=== PATIENT | female | born 1970 | race Caucasian/White ===

== ENCOUNTER 2018-08-23 23:57 | Emergency (ER) | payer SELFPAY ==
[~2018-08-23] VITALS: Ht 162.6 cm; Wt 70.5 kg
[~2018-08-23 23:57] MED LIST: QUET100T PO
[2018-08-24 00:22] VITALS: Ht 162.6 cm; Wt 70.5 kg
--- NOTE | 2018-08-24 02:37 | ERD ---
ER Documentation Chief Complaint Chief Complaint bib ra 909, states 1 1/2 months , crying, talking to self HPI This is a 48-year-old female who says that she is 1-1/2 months and she wants us to verify that she is . She says that she is only able to know if she is if she has an ultrasound and the blood and urine test do not show any positive results. She is having no cramps and no vaginal bleeding. The patient is a bit tangential with her story ROS All systems reviewed and are negative except as per history of present illness. Medications Home Meds Reported Medications Quetiapine Fumarate* (Seroquel*) 100 Mg Tablet, 100 MG PO HS, TAB 01/21/14 Allergies Allergies: Coded Allergies: No Known Allergy (Unverified , 01/20/14) PMhx/Soc History of Surgery: No Anesthesia Reaction: No Hx Neurological Disorder: No Hx Respiratory Disorders: No Hx Cardiac Disorders: No Hx Psychiatric Problems: No Hx Miscellaneous Medical Probl: Yes (SCHIZOPHRENIA) Hx Alcohol Use: No Hx Substance Use: No Hx Tobacco Use: No FmHx Family History: No coronary disease Physical Exam Vitals Vital Signs Date Temp Pulse Resp B/P (MAP) Pulse Ox O2 O2 Flow FiO2 Time Delivery Rate 08/24/18 97.9 128 18 171/98 98 00:22 (122) Physical Exam Const: Well-developed, well-nourished Head: Atraumatic, normocephalic Eyes: Normal Conjunctiva, PERRLA, EOMI, normal sclera, no nystagmus ENT: Normal External Ears, Nose and Mouth, moist mucus membranes. Neck: Full range of motion. No meningismus, no lymphadenopathy. Resp: Clear to auscultation bilaterally, no wheezing, rhonchi, rales Cardio: Regular rate and rhythm, no murmurs, S1 S2 present Abd: Soft, non tender x 4, non distended. Normal bowel sounds, no guarding or rebound, no pulsitile abdominal masses or bruits Skin: No petechiae or rashes, no ecchymosis , no maculopapular rash Back: No midline or flank tenderness Ext: No cyanosis, or edema, FROM x 4, normal inspection, neurovascularly intact x 4 Neur: Awake and alert, STR 5/5 x 4, sensation intact x 4, no focal findings, cerebellum intact Psych: Tangential Results 24 hrs Laboratory Tests Test 08/24/18 02:00 POC Beta HCG, Qualitative NEGATIVE Procedures/MDM HCG test is negative. Patient was very upset that she is not and she said that we are lying to her. She is demanding an ultrasound. I told her she needs to follow-up with her primary care she is not . Patient obviously has some psychosis here which is likely chronic. Start a few low-dose Seroquel at bedtime to help Departure Diagnosis: Primary Impression: Psychological disorder Condition: Stable Patient Instructions: Psychosis Referrals: DOCTOR,NOT ON STAFF (PCP) LIZETH SANCHEZ DO Aug 24, 2018 02:37
[2018-08-24] MEDS ORDERED: CITA10TA10 PO (02:41)
[2018-08-24] MEDS ORDERED: QUET50TA PO (02:42)
[2018-08-24 03:01] VITALS: BP 135/98; PULSE 99; RESP 16
== END 2018-08-24 03:30 | disposition home or self-care (01) ==
LOC: E/R 23:57
DX: F99 Mental disorder, not otherwise specified (principal); Z32.02 Encounter for pregnancy test, result negative
CPT/HCPCS: 81025; 99283